=== PATIENT | male | born 1945 | race Caucasian/White ===

== ENCOUNTER 2019-06-07 20:57 | Observation (INO) ==
--- NOTE | 2019-06-07 21:08 | Emergency Department Note ---
Disposition Clinical Impression: Atrial fibrillation, History of recent steroid use Disposition: Admitted As Inpatient Condition: Fair Referrals: Bobby Metzger, COMM[facility] NURSING DIRECTOR [Primary Care Provider] - Time of Disposition: 22:40 Arrhythmia/Palpitations HPI - General Stated Complaint: chest pain Time Seen by Provider: 06/07/19 20:59 Source: patient Mode of arrival: ambulatory Limitations: physical limitation (Difficulty carrying on conversation because of prior health issues) Nursing Notes Reviewed: Yes Vital Signs Reviewed: Yes - History of Present Illness HPI Narrative: 74-year-old male who recently been started on steroids about a week ago has been tapering down off him today had palpitations and felt like his heart was racing and skipping beats when he checked his blood pressure was significantly elevated he had no headache no blurred vision no double vision but he is having s dyspnea he denies calf pain or tenderness noted patient states that he could tell that his heart rate was very irregular consistent with atrial fib he has to self up to his blood pressure cuff which was reading blood pressures repeatedly over 180/90 the highest being in the 200s but not reaching to 10 and that his pulse was very irregular when he could listen to it on his blood pressure cuff he has family members to bring him to the emergency room upon arrival to the emergency room. Patient has confirm his heart rate and blood pressure with his machine which was consistent with what we had on security monitor as a result his machine was correct. He denies any blurred vision double vision loss vision throbbing neck pain neck stiffness joint aches rash lesions diarrhea melena hematochezia hematemesis all systems have been reviewed and are otherwise negative patient has had no syncope Pt Subjective Complaint: rapid heart beat, "heart racing", palpitations Onset (ago): hour(s) Duration: constant Severity: moderate Context: occurred during rest Arrhythmia History: atrial fibrillation, pacemaker, other (History of unsustained V. tach) Associated symptoms: Reports: chest pain, shortness of breath (Pressure not laine n). Denies: syncope, near-syncope, nausea, vomiting, anxiety, diaphoresis, cough, paresthesias, muscle cramps Treatments prior to arrival: vagal maneuvers - Related Data Home Medications Medication Instructions Recorded Confirmed Lisinopril [Zestril] 40 mg PO DAILY 10/18/16 06/07/19 Aspirin [Lo-Dose Aspirin EC] 81 mg PO DAILY 03/30/17 06/07/19 Furosemide [Lasix] 40 mg PO DAILY 03/30/17 06/07/19 Timolol [Betimol] 5 ml OP DAILY 03/30/17 06/07/19 Rosuvastatin Calcium [Crestor] 20 mg PO DAILY 03/31/17 06/07/19 Insulin LISPRO [HumaLOG] 8 units SQ TIDWM 06/30/17 06/07/19 Amlodipine Besylate 5 mg PO DAILY 06/07/19 06/07/19 Metoprolol [Lopressor] 50 mg PO BID 06/07/19 06/07/19 Rivaroxaban [Xarelto] 20 mg PO DAILY 06/07/19 06/07/19 Previous Rx's Medication Instructions Recorded Insulin Glargine [Lantus] 20 unit SQ HS #0 04/02/17 Allergies Allergy/AdvReac Type Severity Reaction Status Date / Time No Known Allergies Allergy Verified 06/07/19 21:39 All systems ED: reviewed and negative except as stated. Review of Systems: As Per HPI Constitutional: Denies: fever, chills, weakness Eyes: Denies: eye pain, eye discharge ENT ED: Denies: ear pain, throat pain Cardiovascular: Reports: chest pain (Pressure more than pain), palpitations Respiratory: Denies: cough, dyspnea, wheezes Gastrointestinal: Denies: abdominal pain, nausea, vomiting Genitourinary: Denies: urgency, dysuria Musculoskeletal: Denies: back pain, neck pain Integumentary: Denies: rash, abrasion Neurological: Denies: headache, weakness Psychiatric: Denies: anxiety, depression Endocrine: Denies: fatigue Hematological/Lymphatic: Denies: easy bleeding Allergic/Immunologic: Denies: facial swelling Past Medical History - Past Medical History Attestation: Yes The following information was validated with the patient. Source: patient, old records reviewed, nursing notes reviewed Medical history: Reports: diabetes, hyperlipidemia, hypertension, renal disease, other Surgical history: Reports: coronary bypass (CABG) Psychiatric history: Reports: no psych history - Social History Smoking Status: Former smoker Smokeless Tobacco Status: No Alcohol use: Reports: none Drug use: Reports: none Physical Exam - General Limitations: physical limitation (Difficulty speaking) General appearance: alert, in no apparent distress, anxious - Head Head exam: atraumatic, normocephalic, normal inspection - Eye Eye exam: Present: normal appearance, PERRL, EOMI - ENT ENT exam: normal exam, normal oropharynx, mucous membranes moist, TM's normal bilaterally, normal external ear exam - Neck Neck exam: Present: normal inspection, full ROM, trachea midline - Chest Chest inspection: Present: normal inspection, symmetric chest wall rise, other (Well-healed midline surgical incision without any evidence of infection no pain no tenderness with palpation) - Respiratory Respiratory exam: Present: normal lung sounds bilaterally - Cardiovascular Cardiovascular exam: Present: tachycardia, irregular rhythm - Abdominal Exam Abdominal exam: Present: soft, Non-Tender, normal bowel sounds. Absent: mass, pulsatile mass - Expanded Upper Extremity Exam Shoulder exam: Present: normal inspection, full ROM Arm exam: Present: normal inspection, full ROM Elbow exam: Present: normal inspection, full ROM Forearm/Wrist exam: Present: normal inspection, full ROM Hand exam: Present: normal inspection, full ROM Vascular exam: Normal: capillary refill, radial pulse - Expanded Lower Extremity Exam Hip/Pelvis exam: Present: normal inspection, full ROM Upper leg exam: Present: normal inspection, full ROM Knee exam: Present: normal inspection, full ROM Lower leg exam: Present: normal inspection, full ROM Ankle exam: Present: normal inspection, full ROM Foot/toe exam: Present: normal inspection, full ROM Neurovascular/Tendon exam: Present: normal capillary refill, normal fine/light touch. Absent: motor deficit, sensory deficit, tendon deficit Gait: observed and normal - Back Exam Back exam: Present: normal inspection, full ROM. Absent: muscle spasm - Neurological Exam Neurological exam: Present: alert, oriented X3, CN II-XII intact, normal gait - Psychiatric Psychiatric exam: Present: normal affect, normal mood - Skin Skin exam: Present: warm, dry, intact, normal color Course Course Narrative: Patient was seen and evaluated examinations performed patient has a pacemaker in place to keep his heart rate from going less than 60 he was placed for symptomatic bradycardia that the patient has not had any bradycardia he has had palpitations and was feeling very uneasy with these. Patient has history of atrial fibrillation is recently placed on steroids which may be the etiology for this as a result we will monitor him overnight he did not require cardioversion or any medications at this time to control his rate call was made to the hospitalist and per protocol he will be admitted to the hospitalist services I provided the orders at this time we will monitor patient closely there is any issues during course and that we can make arrangements for transfer at that time patient is agreeable stable at time of transfer to [facility] Vital Signs Temperature 98.2 F 06/07/19 20:57 Pulse Rate 109 06/07/19 20:57 Respiratory Rate 14 06/07/19 20:57 Blood Pressure 159/118 06/07/19 20:57 O2 Sat by Pulse Oximetry 98 06/07/19 20:57 Temperature 98.2 F 06/07/19 20:57 Pulse Rate 81 06/07/19 21:58 Respiratory Rate 16 06/07/19 21:58 Blood Pressure 143/93 06/07/19 21:58 O2 Sat by Pulse Oximetry 95 06/07/19 21:58 Oxygen Delivery Oxygen Delivery Room Air Arrhythmia/Palpitations - Differential Diagnosis Differential Diagnosis: Likely: palpitations, artial arrhythmia, ventricular tachycardia - Medical Records Medical records reviewed: Yes I reviewed the patient's medical records. - Lab Data Lab results reviewed: Yes I reviewed the patient's lab results. Result diagrams: 06/07/19 21:27 06/07/19 21:27 Lab Results 06/07/19 06/07/19 06/07/19 Range/Units 21:27 21:27 21:27 WBC 13.5 H (4.3-11.1) K/mcL RBC 5.49 (4.19-5.50) M/mcL Hgb 16.8 (12.9-16.9) g/dL Hct 50.1 (37.5-50.1) % MCV 91.3 (83.0-100.0) fL MCH 30.6 (28.0-33.3) pg MCHC 33.5 (31.6-35.5) g/dL RDW 13.3 (11.5-14.5) % Plt Count 240 (140-400) K/mcL MPV 10.2 (9.4-12.4) fL Immature Gran % 1.1 (0-4) % Seg Neutrophils % 72.3 % Lymphocytes % 17.5 % Monocytes % 6.6 % Eosinophils % 2.1 % Basophils % 0.4 % Neutrophils # 9.8 H (1.6-8.9) K/mcL Lymphocytes # 2.4 (0.6-4.6) K/mcL Monocytes # 0.9 (0.0-1.3) K/mcL Eosinophils # 0.3 (0.0-0.6) K/mcL Basophils # 0.1 (0.0-0.2) K/mcL PT 13.5 H (9.4-12.1) Seconds INR 1.2 APTT 30.2 (26.0-36.0) Seconds Sodium 136 (136-145) mEq/L Potassium 3.8 (3.5-5.1) mEq/L Chloride 101 (98-107) mEq/L Carbon Dioxide 25 (23-29) mEq/L BUN 35 H (8-23) mg/dL Creatinine 1.25 (0.70-1.30) mg/dL Est GFR ( Amer) > 60 (> 60) Est GFR (Non-Af Amer) 56 L (> 60) BUN/Creatinine Ratio 28 H (6-26) Glucose 156 H (70-105) mg/dL Calculated Osmolality 293 (280-300) Calcium 9.5 (8.6-10.3) mg/dL Total Bilirubin 1.0 (0.3-1.0) mg/dL AST 28 (13-39) Units/L ALT 80 H (7-52) Units/L Alkaline Phosphatase 100 (34-104) Units/L Troponin I 0.08 H* (< 0.04) ng/mL B-Natriuretic Peptide (Less than 100) pg/mL Serum Total Protein 6.4 (6.4-8.9) g/dL Albumin 4.1 (3.5-5.7) g/dL Globulin 2.3 L (2.4-3.5) g/dL Albumin/Globulin Ratio 1.8 (1.1-2.2) TSH 3.595 (0.340-5.600) mcIU/mL 06/07/19 Range/Units 21:27 WBC (4.3-11.1) K/mcL RBC (4.19-5.50) M/mcL Hgb (12.9-16.9) g/dL Hct (37.5-50.1) % MCV (83.0-100.0) fL MCH (28.0-33.3) pg MCHC (31.6-35.5) g/dL RDW (11.5-14.5) % Plt Count (140-400) K/mcL MPV (9.4-12.4) fL Immature Gran % (0-4) % Seg Neutrophils % % Lymphocytes % % Monocytes % % Eosinophils % % Basophils % % Neutrophils # (1.6-8.9) K/mcL Lymphocytes # (0.6-4.6) K/mcL Monocytes # (0.0-1.3) K/mcL Eosinophils # (0.0-0.6) K/mcL Basophils # (0.0-0.2) K/mcL PT (9.4-12.1) Seconds INR APTT (26.0-36.0) Seconds Sodium (136-145) mEq/L Potassium (3.5-5.1) mEq/L Chloride (98-107) mEq/L Carbon Dioxide (23-29) mEq/L BUN (8-23) mg/dL Creatinine (0.70-1.30) mg/dL Est GFR ( Amer) (> 60) Est GFR (Non-Af Amer) (> 60) BUN/Creatinine Ratio (6-26) Glucose (70-105) mg/dL Calculated Osmolality (280-300) Calcium (8.6-10.3) mg/dL Total Bilirubin (0.3-1.0) mg/dL AST (13-39) Units/L ALT (7-52) Units/L Alkaline Phosphatase (34-104) Units/L Troponin I (< 0.04) ng/mL B-Natriuretic Peptide 301 H (Less than 100) pg/mL Serum Total Protein (6.4-8.9) g/dL Albumin (3.5-5.7) g/dL Globulin (2.4-3.5) g/dL Albumin/Globulin Ratio (1.1-2.2) TSH (0.340-5.600) mcIU/mL - Radiology Data Radiology results reviewed: Yes I reviewed the patient's radiology results. ITS Impressions Chest X-Ray 06/07/19 21:24 IMPRESSION: No acute cardiopulmonary disease. D/ / Ned Rogers MD / Ned Rogers MD Interpreting Provider: Ned Rogers MD - EKG Data EKG attestation: Yes I reviewed and interpreted this EKG. EKG results narrative: Atrial fib flutter with a rate of 127 PA unable to calculate QRS [address] depression most likely consistent with rate her left ventricular hypertrophy patient also has multifocal PVCs Critical Care Time Critical Care Time: Yes Total Critical Care Time: 15 Attestation: high probability clinically significant life-threatening deterioration patient condition excessive reportable procedures as result patient arriving in atrial flutter with RVR which spontaneously relieved himself after he was resting comfortably in the bed and was being hooked up to security monitor
[2019-06-07 21:37] LABS: Basophils # 0.1 K/mcL (0.0-0.2); Basophils % 0.4 %; Eosinophils # 0.3 K/mcL (0.0-0.6); Eosinophils % 2.1 %; Hematocrit 50.1 % (37.5-50.1); Hemoglobin 16.8 g/dL (12.9-16.9); Immature Granulocytes % 1.1 % (0-4); Lymphocytes # 2.4 K/mcL (0.6-4.6); Lymphocytes % 17.5 %; Mean Corpuscular HGB Conc 33.5 g/dL (31.6-35.5); Mean Corpuscular Hemoglobin 30.6 pg (28.0-33.3); Mean Corpuscular Volume 91.3 fL (83.0-100.0); Mean Platelet Volume 10.2 fL (9.4-12.4); Monocytes # 0.9 K/mcL (0.0-1.3); Monocytes % 6.6 %; Neutrophils # 9.8 K/mcL (1.6-8.9); Platelet Count 240 K/mcL (140-400); Red Blood Count 5.49 M/mcL (4.19-5.50); Red Cell Distribution Width 13.3 % (11.5-14.5); Segmented Neutrophils % 72.3 %; White Blood Count 13.5 K/mcL (4.3-11.1)
[2019-06-07 21:44] LABS: INR 1.2; Prothrombin Time 13.5 Seconds (9.4-12.1)
[2019-06-07 21:46] LABS: Activated Partial Thrombo Time 30.2 Seconds (26.0-36.0)
[2019-06-07 21:58] LABS: Alanine Aminotransferase 80 Units/L (7-52); Albumin 4.1 g/dL (3.5-5.7); Albumin/Globulin Ratio 1.8 (1.1-2.2); Alkaline Phosphatase 100 Units/L (34-104); Aspartate Amino Transferase 28 Units/L (13-39); BUN/Creatinine Ratio 28 (6-26); Blood Urea Nitrogen 35 mg/dL (8-23); Calcium 9.5 mg/dL (8.6-10.3); Carbon Dioxide 25 mEq/L (23-29); Chloride 101 mEq/L (98-107); Globulin 2.3 g/dL (2.4-3.5); Glucose 156 mg/dL (70-105); Osmolality,Calculated 293 (280-300); Potassium 3.8 mEq/L (3.5-5.1); Sodium 136 mEq/L (136-145); Total Protein 6.4 g/dL (6.4-8.9); Troponin I 0.08 ng/mL (< 0.04); eGFR For African Americans > 60 (> 60); eGFR For Non-African Americans 56 (> 60)
[2019-06-07 22:19] LABS: Thyroid Stimulating Hormone 3.595 mcIU/mL (0.340-5.600)
[2019-06-07] MEDS ORDERED: Naloxone 0.4 MG/ML INJ IVP PRN (23:05)
[2019-06-07] MEDS ORDERED: D5% in Water 1,000 ML IVC PRN (23:05)
[2019-06-07] MEDS ORDERED: Dextrose Gel 15 GM/37.5 ML TUBE PO PRN ×2 (23:05)
[2019-06-07] MEDS ORDERED: *HR* Dextrose 50 % in Water (Syg) 50 ML SYRINGE IVP PRN (23:05)
[2019-06-08 03:34] LABS: BUN/Creatinine Ratio 30 (6-26); Blood Urea Nitrogen 33 mg/dL (8-23); Calcium 8.8 mg/dL (8.6-10.3); Carbon Dioxide 25 mEq/L (23-29); Chloride 105 mEq/L (98-107); Glucose 173 mg/dL (70-105); Osmolality,Calculated 295 (280-300); Potassium 3.9 mEq/L (3.5-5.1); Sodium 137 mEq/L (136-145); eGFR For African Americans > 60 (> 60); eGFR For Non-African Americans > 60 (> 60)
[2019-06-08] MEDS ORDERED: Insulin LISPRO 300 UNITS/3 ML VIAL SQ SCH (08:00)
[2019-06-08] MEDS: Insulin LISPRO 300 UNITS/3 ML VIAL SQ SCH ×4 (08:48→11:56)
[2019-06-08] MEDS ORDERED: amLODIPine 5 MG TABLET PO SCH (09:00)
[2019-06-08] MEDS ORDERED: *HR* Rivaroxaban 10 MG TABLET PO SCH (09:00)
[2019-06-08] MEDS ORDERED: Furosemide 20 MG TABLET PO SCH (09:00)
[2019-06-08] MEDS ORDERED: Lisinopril 20 MG TABLET PO SCH (09:00)
[2019-06-08] MEDS ORDERED: Aspirin Enteric Coated 81 MG Tablet PO SCH (09:00)
[2019-06-08 11:48] VITALS: BP 108/68
--- NOTE | 2019-06-08 12:35 | Internal Med History&Physical ---
Date of Encounter: 06/08/19 Time of Encounter: 12:32 Assessment and Plan (1) CAD (coronary artery disease) Current visit: Yes Status: Chronic Patient presented to emergency department with complaints of substernal chest pain and dyspnea. Patient's chest pain and dyspnea soon resolved after arriving to the emergency department without any further treatment. Patient did have slightly elevated troponins which peaked at 0.11 before trending back down to 0.09. Patient was noted to have atrial fibrillation with RVR with his heart rate at time of admission been elevated as high as 140 bpm. Also on admission patient's blood pressure was severely elevated with a systolic greater than 200. After arriving to emergency department patient's heart rate and blood pressure trended back down without further treatment. Patient has remained on engine monitor overnight with no further ectopy noted and his heart rate has remained in atrial fibrillation with a controlled ventricular rate less than 100. Patient denies any further chest discomforts, palpitations or dyspnea. Patient was seen in Dr. Daniel's office approximately one week ago with no acute issues at that time. Dr. Lindsey's office will be notified of patient's admission with current troponin levels and will ask for his recommendations for further follow- up or for patient to remain hospitalized for further workup. We will continue with current medications. We will continue with engine monitor. We will repeat troponin at 3 PM to assure continued trending down of to follow. Likely secondary to patient's high heart rate. Patient was on prednisone prior to his admission which he states made him very excitable and slightly confused and also elevated his glucose levels. Qualifiers: Coronary Disease-Associated Artery/Lesion type: bypass graft [place] vs. transplanted heart: [place] heart Associated angina: without angina Qualified Code(s): I25.810 - Atherosclerosis of coronary artery bypass graft(s) without angina pectoris (2) Hypertension Current visit: No Status: Chronic Patient's blood pressure was severely elevated greater than 200 systolically, just prior to his admission. Patient's blood pressure has trended down with no recent elevations noted. We will continue with current medications. Qualifiers: Hypertension type: essential hypertension Qualified Code(s): I10 - Essential (primary) hypertension (3) Diabetes Current visit: No Status: Chronic No acute issues. Patient's glucose level has been slightly elevated after starting on prednisone, which has been since discontinued. We will continue with current sliding scale coverage and continue with his current medications. 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 Patient's heart rate has been well controlled less than 100 since his admission from emergency department where he presented with RVR of 140 bpm. We will continue with current medications. We will leave patient on engine monitor at this time. Qualifiers: Atrial fibrillation type: unspecified Qualified Code(s): I48.91 - Unspecified atrial fibrillation (5) History of recent steroid use Current visit: Yes Status: Acute Patient was started on prednisone recently due to pain to a left hip after he experienced a fall at home. Patient stopped his prednisone after one to 2 doses at home due to feelings of excitability and slight confusion. Patient also states that he has had a slightly elevated glucose level and feels that the prednisone was the reason for him to have such an elevated blood pressure and heart rate that led to him presenting to the emergency department. Patient has since discontinued prednisone and currently his heart rate and blood pressure elevations have resolved. We will continue to monitor. Internal Medicine - H&P: HPI Chief complaint: chest pain Admitted From: Home Plans for Post Hospital Care: Home History of present illness: Mr. Rinaldi is a 74 year old male, who presented to emergency department last evening with complaints of substernal chest pain, dyspnea and palpitations. He reports that he had recently started on prednisone for pain from an injury to his left hip, which he discontinued after the first one to 2 doses due to me dication making him slightly confused and excitable. Patient states that yesterday he felt palpitations and checked his blood pressure which was extremely elevated with systolic blood pressures as high as 200. Patient states that he has history of atrial fibrillation and after presented to the emergency department he had a heart rate that was elevated at 120-1 40 bpm. Patient states that he had experienced substernal chest pain with no radiation and slight dyspnea at time presented to emergency department but that his pain and dyspnea soon resolved without any further treatment in ER. Workup. The time patient's heart rate and blood pressure also decreased while in the emergency department he was admitted to the medical earl for further evaluation. Patient's initial troponin was slightly elevated at 0.08. Patient had serial troponins that were performed which peaked at 0.11 and then had a falling troponin of 0.09 this morning. Patient has denied any further chest discomforts or palpitations since his admission from emergency department. He denies any dyspnea. Patient's been On engine monitor overnight which shows atrial fibrillation with no further ectopy and a controlled ventricular rate of less than 100. Patient states that he has a history of bradycardia and has a p ermanent pacemaker. Patient also states he has a history of coronary artery disease and a CABG a little over 2 years ago. Patient states that he sees Dr. Daniel for cardiology and was seen in his office approximately one week ago with no acute issues noted at that time. He states that he has not had a stress test in over 2 years. 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 2018 - Social History Smoking Status: Former smoker Smokeless Tobacco Status: No Alcohol use: none Drug use: none - Family History Father Living Status: Hx Family Cardiac Disorders: Yes ([place]) Brother Living Status: Hx Family Cardiac Disorders: Yes ([place]) Mother Hx Family Endocrine Disorder: Yes ([place]) Internal Medicine - H&P: Meds Lisinopril [Zestril] 40 mg PO DAILY 10/18/16 [History] Aspirin [Lo-Dose Aspirin EC] 81 mg PO DAILY 03/30/17 [History] Furosemide [Lasix] 40 mg PO DAILY 03/30/17 [History] Timolol [Betimol] 5 ml OP DAILY 03/30/17 [History] Rosuvastatin Calcium [Crestor] 20 mg PO DAILY 03/31/17 [History] Insulin LISPRO [HumaLOG] 10 units SQ TIDWM 06/30/17 [History] Amlodipine Besylate 5 mg PO DAILY 06/07/19 [History] Insulin Glargine [Lantus] 25 unit SQ HS 06/07/19 [History] Metoprolol [Lopressor] 50 mg PO DAILY 06/07/19 [History] Rivaroxaban [Xarelto] 20 mg PO DAILY 06/07/19 [History] Allergy/AdvReac Type Severity Reaction Status Date / Time No Known Allergies Allergy Verified 06/07/19 21:39 All Systems PM: A 10-system review of systems was performed and is negative for pertinent findings except as documented above in the HPI. - Constitutional Constitutional: as per HPI, no chills, no fever(s), no night sweats - EENT Eyes: as per HPI, no change in vision, no discharge, no pain, no photophobia Ears: as per HPI, no ear discharge, no ear pain, no tinnitus Nose, mouth and throat: as per HPI, no dysphagia, no nasal discharge, no neck pain, no sore throat - Breasts Breasts: as per HPI - Cardiovascular Cardiovascular ROS IM: as per HPI, no chest pain, no diaphoresis, no dyspnea, no lightheadedness, no palpitations, no syncope - Respiratory Respiratory: as per HPI, no cough, no dyspnea, no wheezing, no excessive phlegm production - Gastrointestinal Gastrointestinal: as per HPI, no abdominal pain, no diarrhea, no hematemesis, no hematochezia, no melena, no nausea, no vomiting - Genitourinary Genitourinary ROS male: as per HPI - Musculoskeletal Musculoskeletal ROS IM: as per HPI, no numbness, no tingling - Integumentary Integumentary IM: as per HPI, no rash, no unusual bruising - Neurological Neurological ROS: as per HPI, no confusion, no convulsions, no focal weakness, no numbness, no tingling, no tremor(s) - Psychiatric Psychiatric: as per HPI - Endocrine Endocrine IM: as per HPI - Hematologic/Lymphatic Hematologic/Lymphatic: as per HPI, no easy bruising - Allergic/Immunologic Allergic/Immunologic: as per HPI - Constitutional Vitals: Temp Pulse Resp BP Pulse Ox 98.3 F 65 16 108/68 96 06/08/19 11:47 06/08/19 11:47 06/08/19 11:47 06/08/19 11:47 06/08/19 11:47 General appearance: Present: A&O X 3, pleasant - Head Head exam: Present: atraumatic, normocephalic - Eye Eye exam: Present: PERRL, conjuntiva pink, sclera anicteric Pupils: Present: PERRL - Neck Neck exam general surgery: Present: supple, trachea midline. Absent: lymphadenopathy - Respiratory Respiratory exam: Present: decreased breath sounds, CTAB. Absent: accessory muscle use, rales, rhonchi, wheezes - Cardiovascular Cardiovascular exam: Present: irregular rhythm, RRR, +S1, +S2. Absent: diast olic murmur, gallop, rubs, systolic murmur Additional comments: Controlled ventricular rate of less than 100 - GI/Abdominal GI/Abdominal exam: Present: normal bowel sounds, soft, no peritoneal signs. Absent: distended, tenderness - Extremities Exam Extremities exam: Present: warm, radial pulses palpable and symmetrical. Absent: calf tenderness, cyanotic, pedal edema - Neurological Exam Neurological exam: Present: CN II-XII intact, oriented X3, no focal deficits. Absent: pronater drift, facial droop, speech deficit - Skin Skin exam: Present: dry, intact Internal Med - H&P Results - Labs CBC & Chem 7: 06/07/19 21:27 06/08/19 02:55 Labs: Short CBC 06/07/19 Range/Units 21:27 WBC 13.5 H (4.3-11.1) K/mcL Hgb 16.8 (12.9-16.9) g/dL Hct 50.1 (37.5-50.1) % Plt Count 240 (140-400) K/mcL Neutrophils # 9.8 H (1.6-8.9) K/mcL BMP 06/07/19 06/08/19 21:27 02:55 Sodium 136 137 Potassium 3.8 3.9 Chloride 101 105 Carbon Dioxide 25 25 BUN 35 H 33 H Creatinine 1.25 1.11 Glucose 156 H 173 H Calcium 9.5 8.8 Cardiac Enzymes 06/07/19 06/08/19 06/08/19 Range/Units 21:27 02:55 09:03 Troponin I 0.08 H* 0.11 H* 0.09 H* (< 0.04) ng/mL Liver Function 06/07/19 Range/Units 21:27 Total Bilirubin 1.0 (0.3-1.0) mg/dL AST 28 (13-39) Units/L ALT 80 H (7-52) Units/L Alkaline Phosphatase 100 (34-104) Units/L Albumin 4.1 (3.5-5.7) g/dL - Impressions ITS Impressions Chest X-Ray 06/07/19 21:24 IMPRESSION: No acute cardiopulmonary disease. D/ / Ned Rogers MD / Ned Rogers MD Interpreting Provider: Ned Rogers MD
--- NOTE | 2019-06-08 14:26 | Discharge Summary ---
Date of Encounter: 06/08/19 Time of Encounter: 14:15 - Discharge Diagnosis (1) CAD (coronary artery disease) Priority: Primary Status: Acute Comments: Patient was admitted to the emergency department with complaints of chest pain and dyspnea. Patient also was noted to be in atrial fibrillation with RVR with a ventricular rate between 120 and 140. Serial troponins were obtained with a peak value of 0.11, but the third troponin showed a trending down at 0.09. EKG showed no ischemic pattern and patient was diagnosed with a non-STEMI AL. Patient's pain was relieved in the emergency department without any further prevention. Patient was kept on threat monitoring analyst overnight, which showed his atrial fibrillation having a ventricular rate maintained less than 100. No further ectopy was noted. Patient has been pain-free overnight Qualifiers: Coronary Disease-Associated Artery/Lesion type: bypass graft [place] vs. transplanted heart: [place] heart Associated angina: without angina Qualified Code(s): I25.810 - Atherosclerosis of coronary artery bypass graft(s) without angina pectoris (2) Hypertension Priority: Secondary Status: Chronic Comments: Patient's blood pressure was elevated to a systolic greater than 200 at time of admission to emergency department. Patient's blood pressure trended down after being evaluated in acute department and has remained within normal limits overnight Qualifiers: Hypertension type: essential hypertension Qualified Code(s): I10 - Essential (primary) hypertension (3) Diabetes Priority: Secondary Status: Chronic Comments: Patient states that his glucose levels have been elevated after starting on prednisone earlier in the week. Patient glucose has been well controlled with most readings less than 200 during stay here overnight Qualifiers: Diabetes mellitus type: type 2 Diabetes mellitus group home insulin use: with long term acute care registered nurse use Diabetes mellitus complication status: without complication Qualified Code(s): E11.9 - Type 2 diabetes mellitus without complications; Z79.4 - intermediate designer (current) use of insulin (4) Atrial fibrillation Priority: Secondary Status: Chronic Comments: No acute issues overnight. Patient had atrial fibrillation with RVR when presenting to the emergency department and his heart rate trended down after being evaluated. Patient remain on threat monitoring analyst overnight with a ventricular rate controlled less than 100. Qualifiers: Atrial fibrillation type: unspecified Qualified Code(s): I48.91 - Unspecified atrial fibrillation (5) History of recent steroid use Priority: Secondary Status: Acute Comments: Habits started on a prednisone burst by his PCP prior to admission for complaints of pain to the left hip. Patient states that he had fallen approximately one week prior and has had residual pain to the left hip. Patient discontinued his prednisone after one to 2 doses stating that it made him very excitable and slightly confused. Patient relates the use of his prednisone as the reason he became hypertensive with a elevated heart rate Hospital course: Mr. Rinaldi is a 74 year old male , who presented to emergency department last evening with complaints of substernal chest pain, dyspnea and palpitations. He reports that he had recently started on prednisone for pain from an injury to his left hip, which he discontinued after the first one to 2 doses due to medication making him slightly confused and excitable. Patient states that yesterday he felt palpitations and checked his blood pressure which was extremely elevated with systolic blood pressures as high as 200. Patient states that he has history of atrial fibrillation and after presented to the emergency department he had a heart rate that was elevated at 120-1 40 bpm. Patient states that he had experienced substernal chest pain with no radiation and slight dyspnea at time presented to emergency department but that his pain and dyspnea soon resolved without any further treatment in ER. Workup. The time patient's heart rate and blood pressure also decreased while in the emergency department he was admitted to the medical earl for further evaluation. Patient's initial troponin was slightly elevated at 0.08. Patient had serial troponins that were performed which peaked at 0.11 and then had a following tr oponin of 0.09 this morning. Patient has denied any further chest discomforts or palpitations since his admission from emergency department. He denies any dyspnea. Patient's been On threat monitoring analyst overnight which shows atrial fibrillation with no further ectopy and a controlled ventricular rate of less than 100. 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 Patient also states he has a history of coronary artery disease and a CABG a little over 2 years ago. Patient states that he sees Dr. Daniel for cardiology and was seen in his office approximately one week ago with no acute issues noted at that time. He states that he has not had a stress test in over 2 years. Patient at times is very difficult to understand due to a chronic issue with dysarthria and at times requires his to be present to assist with his history. Patient was diagnosed with a non-STEMI AL and is being transferred to main hospital for further evaluation and treatment. Discharge discussed with: patient Time spent discussing smoking cessation with patient: 3 to 10 minutes - Time Spent with Patient Total time spent providing and/or coordinating discharge services: Time spent: Less than 30 minutes - Discharge Medications Prescriptions: No Action Timolol [Betimol] 5 ml OP DAILY Aspirin [Lo-Dose Aspirin EC] 81 mg PO DAILY Rosuvastatin Calcium [Crestor] 20 mg PO DAILY Insulin LISPRO [HumaLOG] 10 units SQ TIDWM Lisinopril [Zestril] 40 mg PO DAILY Furosemide [Lasix] 40 mg PO DAILY Amlodipine Besylate 5 mg PO DAILY Metoprolol [Lopressor] 50 mg PO DAILY Rivaroxaban [Xarelto] 20 mg PO DAILY Insulin Glargine [Lantus] 25 unit SQ HS Home Medications: Lisinopril [Zestril] 40 mg PO DAILY 10/18/16 [History] Aspirin [Lo-Dose Aspirin EC] 81 mg PO DAILY 03/30/17 [History] Furosemide [Lasix] 40 mg PO DAILY 03/30/17 [History] Timolol [Betimol] 5 ml OP DAILY 03/30/17 [History] Rosuvastatin Calcium [Crestor] 20 mg PO DAILY 03/31/17 [History] Insulin LISPRO [HumaLOG] 10 units SQ TIDWM 06/30/17 [History] Amlodipine Besylate 5 mg PO DAILY 06/07/19 [History] Insulin Glargine [Lantus] 25 unit SQ HS 06/07/19 [History] Metoprolol [Lopressor] 50 mg PO DAILY 06/07/19 [History] Rivaroxaban [Xarelto] 20 mg PO DAILY 06/07/19 [History] Allergies/Adverse Reactions: Allergy/AdvReac Type Severity Reaction Status Date / Time No Known Allergies Allergy Verified 06/07/19 21:39 Date of admission: 06/07/19 22:55 Primary care physician: Bobby Metzger CNP Discharging clinician: Janna Soto - Constitutional Vitals: Temp Pulse Resp BP Pulse Ox 98.3 F 65 16 108/68 96 06/08/19 11:47 06/08/19 11:47 06/08/19 11:47 06/08/19 11:47 06/08/19 11:47 General appearance: Present: A&O X 3, pleasant - Head Head exam: Present: atraumatic, normocephalic - Eye Eye exam: Present: PERRL, conjuntiva pink, sclera anicteric Pupils: Present: PERRL - Neck Neck exam general surgery: Present: supple, trachea midline. Absent: lymphadenopathy - Respiratory Respiratory exam: Present: decreased breath sounds, CTAB. Absent: accessory muscle use, rales, rhonchi, wheezes - Cardiovascular Cardiovascular exam: Present: irregular rhythm, RRR, +S1, +S2. Absent: di astolic murmur, gallop, rubs, systolic murmur - GI/Abdominal GI/Abdominal exam: Present: normal bowel sounds, soft, no peritoneal signs. Absent: distended, tenderness - Extremities Exam Extremities exam: Present: warm, radial pulses palpable and symmetrical. Absent: calf tenderness, cyanotic, pedal edema - Neurological Exam Neurological exam: Present: CN II-XII intact, oriented X3, no focal deficits. Absent: pronater drift, facial droop, speech deficit - Skin Skin exam: Present: dry, intact - Patient Status Disposition: Transfer Short-Term Hosp Condition: Fair Functional capacity at discharge: independent ambulation Overall status at discharge: patient is progressing back to baseline - Discharge Instructions Follow Up With: Bobby Metzger, [employer] [Primary Care Provider] - Forms: ED Satisfaction Letter - Diet and Activity Activity: increase activity as tolerated Diet: low fat, low cholesterol, low salt diet
[2019-06-08] MEDS ORDERED: Acetaminophen 325 MG TABLET PO PRN (14:37)
[2019-06-08] MEDS ORDERED: *HR* Heparin 5,000 UNIT/ML VIAL IVP PRN ×2 (15:06)
[2019-06-08] MEDS ORDERED: *HR* Heparin 5,000 UNIT/ML VIAL IVP ONE (15:06)
[2019-06-08] MEDS ORDERED: Heparin 25,000 UNIT/250 ML D5W 25,000 UNIT/250 ML IV.SOLN IVC SCH (15:15)
--- NOTE | 2019-06-08 17:10 | Electrocardiograph Report ---
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
[2019-06-08] MEDS ORDERED: Latanoprost 2.5 ML BOTTLE BOTH EYES SCH (21:00)
[2019-06-08] MEDS ORDERED: Insulin DETEMIR 100 UNIT/ML X5UNITS SQ SCH ×2 (21:00)
--- NOTE | 2019-06-09 09:54 | Electrocardiograph Report ---
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
== END 2019-06-08 16:45 | disposition short-term general hospital (02) ==
LOC: INPGRE 20:57 → EMEROOGRE 20:57 → INPGRE 23:07